=== PATIENT | female | born 2000 ===

== ENCOUNTER 2022-01-12 15:17 | Emergency (ER) | payer SELFPAY ==
[2022-01-12 17:14] VITALS: BP 124/48; PULSE 68; RESP 16; TEMP 36.1; O2SAT 99; BMI 44.2
--- NOTE | 2022-01-12 17:58 | ED_ITS ---
HPI - Skin/Abscess/Foreign Bdy General Chief complaint: Skin/Abscess/Foreign Body Stated complaint: abcess in armpit Time Seen by Provider: 01/12/22 17:56 Source: patient Mode of arrival: ambulatory Limitations: no limitations History of Present Illness HPI narrative: 21 yo female here with left axillae abscess x 1 week. With no fevers, chills. Related Data Previous Rx's Medication Instructions Recorded cephalexin 500 mg capsule 500 mg PO Q12H #14 caps 01/12/22 sulfamethoxazole 800 1 tab PO BID #14 tabs 01/12/22 mg-trimethoprim 160 mg tablet (Bactrim DS) Allergies Allergy/AdvReac Type Severity Reaction Status Date / Time No Known Allergies Allergy Verified 01/12/22 17:13 Review of Systems Review of Systems: Yes all other systems are reviewed and are negative Constitutional: Constitutional: Reports no additional constitutional complaints, Denies body ache(s), Denies chills, Denies fever(s), Denies headache(s) and Denies weakness Eyes: Eyes: Reports no additional eye complaints and Denies change in vision ENT: Reports system reviewed and no additional complaints, except as doc umented, Denies dizziness, Denies headache(s), Denies nasal congestion, Denies nasal discharge and Denies neck pain Cardiovascular: Cardiovascular: Reports no additional cardiovascular complaints, Denies chest pain, Denies leg edema and Denies dyspnea Respiratory: Respiratory: Reports no additional respiratory complaints, Denies cough and Denies dyspnea Gastrointestinal: Gastrointestinal: Reports no additional gastrointestinal complaints, Denies abdominal pain, Denies diarrhea, Denies nausea and Denies vomiting Genitourinary: Genitourinary: Reports no additional female genitourinary complaints and Denies urinary incontinence Musculoskeletal: Musculoskeletal: Reports no additional musculoskeletal complaints, Denies back pain, Denies arthralgias, Denies joint swelling, Denies neck pain, Denies numbness and Denies tingling Integumentary/Breasts: Skin/Breast: Reports system reviewed and no additional complaints, except as docu, Reports swelling, Reports erythema and Denies rash Neurologic: Reports system reviewed and no additional complaints, except as documented, Denies Abnormal speech present, Denies dizziness, Denies headache(s), Denies numbness, Denies tingling and Denies weakness COUNTS INCLUDE 234 BEDS AT THE [facility] Past Medical History Attestation statement: The following information was validated with the patient. Source: old records reviewed and nursing notes reviewed Social History Social History Advance Directives: No Physical Exam Vital Signs: Vital Signs: Last Vital Signs Temp 97 F 01/12/22 17:14 Pulse 68 01/12/22 17:14 Resp 16 01/12/22 17:14 BP 124/48 L 01/12/22 17:14 Pulse Ox 99 01/12/22 17:14 O2 Del Method 01/12/22 17:14 BMI result Body Mass Index 44.2 Const: General: cooperative, healthy appearing, comfortable and no acute distress Orientation/consciousness: patient oriented x3 Limitations: no limitations HEENT: Head: Yes normal to inspection Ears: hearing grossly normal bilaterally General nose exam: Normal external nose present Face and sinus: Yes normal facial exam Mouth: Normal oral and palatal mucosa present Throat: Yes posterior oropharynx normal Eyes: General: appearance normal, both eyes and all related structures Pupils: Equal, round and reactive pupils present Neck: Neck: Yes normal visual inspection Chest: Chest palpation & inspection: normal inspection of the chest Resp: Effort & Inspection: normal respiratory effort Auscultation: clear to auscultation bilaterally Cardio: Rate: regular rate Rhythm: regular rhythm Peripheral pulses: Peripheral pulses 2+ throughout GI: Inspection: Yes normal to inspection Palpation (GI): Soft to palpation and nontender Auscultation: normal bowel sounds Back/Spine/Pelvis: Thoracic/Lumbar Spine: thoracic and lumbar spine normal to inspection Skin: General skin exam: no rashes or lesions noted Neuro: General: patient oriented x3, no focal motor deficits and normal sensation to monofilament Cranial nerves: Yes Equal, round and reactive pupils present Cognition (Neuro): normal cognition Speech: No Abnormal speech present Gait exam (Neuro): Normal gait present Motor exam (neuro): 5/5 motor strength present throughout Extrem: Other: To left axilla there is a medium-sized abscess with draining, surrounding erythema, fluctuance and warmth General: Yes normal to inspection Course Course Course Narrative: When I went in to perform the incision and drainage of the abscess the patient tells me that a large amount of purulent drainage came out just before I entered the room. When I assessed the area I was unable to express any more drainage from the open area which is draining. Therefore the patient placed on oral antibiotics. Will recommend warm compresses and wound care. Reviewed worrisome signs and symptoms of when to return to the emergency room. Comfortable discharge home. MDM - Skin/Abscess/Foreign Bdy MDM Narrative Medical decision making narrative: 21 yo female here with left axillar abscess Medical Records Attestation: I reviewed the patient's medical records. Lab Data Attestation: I reviewed the patient's lab results. Discharge Plan Discharge Clinical Impression: Abscess of skin or subcutaneous tissue Patient Disposition: Home, Self-Care Instructions: Abscess (ED) Additional Instructions: Warm compresses 4 times daily Prescriptions: New cephalexin 500 mg capsule 500 mg PO Q12H Qty: 14 0RF sulfamethoxazole-trimethoprim [Bactrim DS] 800-160 mg tablet 1 tab PO BID Qty: 14 0RF Referrals: Physician,None [Primary Care Provider] - Interventions: ED Discharge Assessment Last Done: 01/12/22 18:58 Discharge Date/Time: 01/12/22 19:08
== END 2022-01-12 19:08 | disposition home or self-care (01) ==
LOC: HO.ED 19:09
PROVIDERS: Emergency Provider Internal Medicine
DX: L02.412 Cutaneous abscess of left axilla (principal)
CPT/HCPCS: 99282; 99283